=== PATIENT | female | born 1975 | race Caucasian/White ===

== ENCOUNTER 2017-11-09 08:44 | Emergency (ER) | payer BC ==
[~2017-11-09] VITALS: Ht 170.2 cm; Wt 63.5 kg
[2017-11-09] MEDS ORDERED: ATIVAN1 MG PO (08:57)
[2017-11-09 09:21] LABS: ABSOLUTE EOSINOPHILS 0.1 thou/uL (0.0-0.7); ABSOLUTE LYMPHOCYTES 1.3 thou/uL (0.8-5.3); ABSOLUTE MONOCYTES 0.4 thou/uL (0.0-1.2); ABSOLUTE NEUTROPHILS 2.3 thou/uL (1.6-8.1); BASOPHILS 0.7 %; EOSINOPHILS 2.4 %; HEMATOCRIT 43.2 % (37.0-47.0); HEMOGLOBIN 14.7 gm/dL (12.0-15.0); LYMPHOCYTES 31.2 %; MCH 30.9 pg (26.0-34.0); MCV 90.7 fL (80.0-100.0); MONOCYTES 10.2 %; MPV 9.8 fl. (7.2-11.1); NUCLEATED RBCS 0 /100WBC; PLATELET COUNT* 186 thou/uL (150-400); POLYS 55.5 %; RBC 4.76 mil/uL (4.20-5.00); RDW-CV 13.3 % (10.5-14.5); WBC 4.2 thou/uL (4.0-11.0)
[2017-11-09 09:25] LABS: CALCIUM 8.3 mg/dL (8.5-10.1); CREATININE 0.7 mg/dL (0.6-1.3); POTASSIUM 4.1 mmol/L (3.5-5.1)
[2017-11-09 09:27] LABS: URINE BILIRUBIN NEGATIVE (Negative); URINE BLOOD NEGATIVE (Negative); URINE CLARITY CLEAR; URINE COLOR YELLOW; URINE GLUCOSE-RANDOM NEGATIVE (Negative); URINE KETONES TRACE (Negative); URINE LEUKOCYTES-REFLEX 1+ (Negative); URINE NITRITE-REFLEX NEGATIVE (Negative); URINE PROTEIN NEGATIVE (Negative); URINE SPECIFIC GRAVITY 1.025 (1.005-1.030); URINE UROBILINOGEN 0.2 E.U./dl (0.2-1.0)
[2017-11-09 09:30] LABS: ALBUMIN 3.7 g/dL (3.4-5.0); TOTAL BILIRUBIN 0.3 mg/dL (<0.1-1.0); TOTAL PROTEIN 6.9 g/dL (6.4-8.2)
[2017-11-09 09:51] LABS: MUCUS >6 Heavy strn/LPF (None Seen); SQUAMOUS >10 Many /LPF (0-3)
[2017-11-09 09:52] LABS: CASTS None Seen /LPF (None Seen); CRYSTALS None Seen /LPF (None Seen); URINE RBC 3-10 Few /HPF (0-2); URINE WBC-REFLEX 6-15 Few /HPF (0-5)
[2017-11-09] MEDS ORDERED: IBUPROFEN 800800 MG PO (12:24)
[2017-11-09] MEDS ORDERED: ULTRAM 50MG TAB50 MG PO (12:24)
[2017-11-09 12:49] VITALS: BP 111/68
== END 2017-11-09 12:50 | disposition home or self-care (01) ==
LOC: M.ERS 08:44
PROVIDERS: Personal Emergency Response Attendant
DX: N83.201 Unspecified ovarian cyst, right side (principal)

== ENCOUNTER 2020-08-22 08:15 | Emergency (ER) | payer OTHER ==
[~2020-08-22] VITALS: Ht 170.2 cm; Wt 70.3 kg
[~2020-08-22 08:15] MED LIST: ATIVAN1 MG PO; IBUPROFEN 800800 MG PO; ULTRAM 50MG TAB50 MG PO
[2020-08-22] MEDS ORDERED: CELEXA 20 MG TA20 MG PO (08:34)
[2020-08-22] MEDS ORDERED: TRIAMCINOLONE A80 G2 TOP (08:40)
[2020-08-22 09:26] VITALS: BP 121/73
== END 2020-08-22 09:20 | disposition home or self-care (01) ==
LOC: M.ERS 08:15
DX: L25.5 Unspecified contact dermatitis due to plants, except food (principal); Z90.89 Acquired absence of other organs

== ENCOUNTER 2020-11-20 18:07 | Emergency (ER) | payer OTHER ==
[~2020-11-20] VITALS: Ht 170.2 cm; Wt 72.6 kg
[~2020-11-20 18:07] MED LIST changes: +CELEXA 20 MG TA20 MG PO; +TRIAMCINOLONE A80 G2 TOP
[2020-11-20] MEDS ORDERED: AUGMENTIN 875-1 EACH PO (19:30)
[2020-11-20 19:36] VITALS: BP 141/83
== END 2020-11-20 19:37 | disposition home or self-care (01) ==
LOC: M.ERS 18:07
DX: J32.9 Chronic sinusitis, unspecified (principal); H92.02 Otalgia, left ear; F41.9 Anxiety disorder, unspecified; Z90.89 Acquired absence of other organs; Z90.710 Acquired absence of both cervix and uterus; Z79.899 Other long term (current) drug therapy